=== PATIENT | female | born 2000 | race Two or more races ===

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

== ENCOUNTER → 2024-10-07 07:54 | Outpatient (CLI) | payer OTHER ==
[2024-10-07 09:06] LABS: URINE APPEARANCE Clear; URINE BILIRRUBIN Negative (NEGATIVE); URINE BLOOD Negative; URINE COLOR Yellow; URINE GLUCOSE Negative (NEGATIVE); URINE KETONE Negative (NEGATIVE); URINE LEUKOCYTE Trace; URINE NITRATE Negative; URINE PROTEIN Negative (NEGATIVE); URINE UROBILINOGEN 1.0 E.U./dl
[2024-10-07 09:10] LABS: URINE BACTERIA 758.4 uL (0.0-1933); URINE EPITHELIAL CELLS 31.5 uL (0.0-38.8); URINE RBC 34.0 uL (0.0-20.8); URINE WBC 10.1 uL (0.0-23.2)
[2024-10-07 09:12] LABS: BASO % 0.5 % (0.1-1.2); EOS # 0.08 (0.04-0.54); EOS % 0.9 % (0.7-7.0); LYMPH # 1.93 (1.18-3.74); LYMPH % 22.8 % (19.3-53.1); MEAN PLATELET VOLUME 10.20 fl (9.4-12.4); MONO # 0.69 (0.24-0.82); MONO % 8.1 % (4.7-12.5); NEUT # 5.71 (1.56-6.13); NEUT % 67.3 % (34.0-71.1); RED CELL DISTRIBUTION WIDTH 13.3 % (11.6-14.4)
[2024-10-07 09:35] LABS: URINE CAST 0.00 uL (0.0-1.40)
[2024-10-07 10:03] LABS: ALT/SGPT 18.0 U/L (12-78); AST/SGOT 8.0 U/L (15-37); BILIRUBIN TOTAL 0.27 mg/dL (0.3-1.2); BUN CREA RATIO 17.0 (7.0-25.0); CHOL HDL RATIO 3.7 (0-5.0); CREATININE SERUM 0.59 mg/dL (0.55-1.02); GFR 128.67; GLOBULINA 3.3 G/DL (2.4-3.5); GLUCOSE FASTING 86.0 mg/dL (65-100); HDL 49.0 mg/dl (40-60); LDL 114.0 mg/dl (0-130); OSMOLALITY SERUM 280.0 MOSM/KG (275-295); T4 TOTAL 10.05 UG/DL (4.8-13.9); TSH 2.79 uIU/mL (0.358-3.74); VLDL 16.0 (0-39)
[2024-10-07 11:00] LABS: T3 TOTAL 1.44 ng/ml (0.846-2.02); VITAMIN D3 25 HYDROXY 11.0 ng/ml (30-120)
[2024-10-07 12:58] LABS: ob NEGATIVE (NEGATIVE)
[2024-10-08 07:11] LABS: hav igm Negative (Negative); hep b c Negative (Negative); hep b s ag Negative (Negative)
== END | disposition home or self-care (01) ==
LOC: LAB 07:54
DX: Z12.11 Encounter for screening for malignant neoplasm of colon (principal); Z13.29 Encounter for screening for other suspected endocrine disorder; E78.5 Hyperlipidemia, unspecified; E55.9 Vitamin D deficiency, unspecified; R74.8 Abnormal levels of other serum enzymes; E03.8 Other specified hypothyroidism; R73.03 Prediabetes; J44.9 Chronic obstructive pulmonary disease, unspecified

== ENCOUNTER 2024-10-29 16:34 | Emergency (ER) | payer OTHER ==
[~2024-10-29] VITALS: Ht 157.5 cm; Wt 68.0 kg
[2024-10-29] MEDS ORDERED: KETOROLAC TROMETHAMINE 30 MG VIAL IM STA (19:07)
[2024-10-29] MEDS ORDERED: KETOROLAC TROMETHAMINE 30 MG VIAL ONE (19:40)
== END 2024-10-29 20:45 | disposition home or self-care (01) ==
LOC: ER 16:34
DX: S99.822A Other specified injuries of left foot, initial encounter (principal); X83.8XXA Intentional self-harm by other specified means, initial encounter; Y93.89 Activity, other specified; Y92.89 Other specified places as the place of occurrence of the external cause; Y99.8 Other external cause status; M79.672 Pain in left foot